=== PATIENT | female | born 1955 | race Caucasian/White ===

== ENCOUNTER 2019-07-29 22:04 | Emergency (ER) | payer BC ==
[2019-07-29 23:21] LABS: Albumin 3.7 g/dL (3.4-5.0); BUN Blood Urea Nitrogen 11 mg/dL (7-18); Basophils % 0.9 % (0-1.3); Bicarbonate 26 mmol/L (21-32); Glucose Level 86 mg/dL (74-106); Hematocrit 38.9 % (36.0-45.0); Lymphocytes % 41.5 % (15.3-44.8); MPV 8.1 fL (7.6-11.3); Magnesium 2.1 mg/dL (1.8-2.4); Potassium 3.3 mmol/L (3.5-5.1); Protime INR 0.96; RBC Red Blood Cell Count 3.88 M/uL (3.86-4.86); Sodium Level 143 mmol/L (136-145)
[2019-07-29 23:23] LABS: ALT/SGPT 26 U/L (12-78); AST/SGOT 19 U/L (15-37); Bilirubin Direct 0.2 mg/dL (0-0.2)
[2019-07-29 23:44] LABS: Alkaline Phosphatase 77 U/L (45-117); Bilirubin Total 0.7 mg/dL (0.2-1.0); Protein, Total 7.6 g/dL (6.4-8.2)
[2019-07-29 23:45] LABS: NT PRO-BNP 32 pg/mL (<125); Troponin (Emerg Dept Use Only) < 0.02 ng/mL (0.0-0.045)
[2019-07-30] MEDS ORDERED: POTASSIUM CL SA 10 MEQ TAB PO ONE (00:02)
[2019-07-30] MEDS ORDERED: ASPIRIN 81 MG CHEWABLE TABLET ONE (00:02)
--- NOTE | 2019-07-30 01:26 | ER ---
Nurse's Notes [facility] Name: Daniela Underwood Age: 64 yrs Sex: Female : 1955 Arrival Date: 07/29/2019 Time: 22:07 Bed 2 Private MD: Diagnosis: Chest pain, unspecified Presentation: 07/28 22:21 Chief complaint: Patient states: Chest pain that began about 2130 while watching TV; lp1 States first episode of chest pain yesterday and another episode this morning; States some dizziness. Coronavirus screen: Proceed with normal triage. Patient denies a cough. Patient denies shortness of breath or difficulty breathing. Patient denies measured and/or subjective temperature greater than 100.4F prior to today's visit. Patient denies travel on a cruise ship or to a country the [facility] currently lists as an affected area. Ebola Screen: No symptoms or risks identified at this time. Initial Sepsis Screen: Does the patient meet any 2 criteria? No. Patient's initial sepsis screen is negative. Does the patient have a suspected source of infection? No. Patient's initial sepsis screen is negative. Risk Assessment: Do you want to hurt yourself or someone else? Patient reports no desire to harm self or others. Onset of symptoms was July 29, 2019 at 21:30. 22:21 Method Of Arrival: Wheelchair lp1 22:21 Acuity: STEPHANIE 3 lp1 Historical: - Allergies: 22:24 Floxin; lp1 - Home Meds: 22:24 levothyroxine oral [Active]; lp1 - PMHx: 22:24 Hypothyroidism; lp1 - PSHx: 22:24 Partial thyroidectomy; lp1 - Immunization history:: Adult Immunizations up to date. - Social history:: Smoking status: Patient denies any tobacco usage or history of. Screenin:49 Abuse screen: Denies threats or abuse. Denies injuries from another. Nutritional rr5 screening: No deficits noted. Tuberculosis screening: No symptoms or risk factors identified. Fall Risk IV access (20 points). Total Alvarez Fall Scale indicates No Risk (0-24 pts). Assessment: 22:30 General: Appears in no apparent distress. uncomfortable, Behavior is calm, cooperative, rr5 appropriate for age. 22:30 Pain: Complains of pain in chest Pain does not radiate. Pain currently is 4 out of 10 rr5 on a pain scale. Quality of pain is described as aching, Pain began suddenly, 1 hour ago. Is intermittent. Neuro: Level of Consciousness is awake, alert, obeys commands, Oriented to person, place, time, situation, Appropriate for age Reports dizziness. Cardiovascular: Reports chest pain, Capillary refill < 3 seconds Patient's skin is warm and dry. Respiratory: Airway is patent Respiratory effort is even, unlabored, Respiratory pattern is regular, symmetrical. GI: No signs and/or symptoms were reported involving the gastrointestinal system. : No signs and/or symptoms were reported regarding the genitourinary system. EENT: No signs and/or symptoms were reported regarding the EENT system. Derm: Skin is intact, is healthy with good turgor, Skin temperature is warm. Musculoskeletal: Circulation, motion, and sensation intact. Capillary refill < 3 seconds. 23:37 Reassessment: Patient and/or family updated on plan of care and expected duration. Pain rv level reassessed. Patient is alert, oriented x 3, equal unlabored respirations, skin warm/dry/pink. Patient denies pain at this time. Patient states feeling better. Patient states symptoms have improved. Cardiovascular: Rhythm is regular Chest pain is denied. 07/29 00:17 Reassessment: Patient appears in no apparent distress at this time. Patient and/or rr5 family updated on plan of care and expected duration. Pain level reassessed. Patient is alert, oriented x 3, equal unlabored respirations, skin warm/dry/pink. stat medication given, for repeat troponin. 01:30 Reassessment: Patient and/or family updated on plan of care and expected duration. Pain rv level reassessed. Patient is alert, oriented x 3, equal unlabored respirations, skin warm/dry/pink. Patient denies pain at this time. Patient states feeling better. Patient states symptoms have improved. Vital Signs: 07/28 22:21 BP 107 / 52; Pulse 60; Resp 16; Temp 98.3; Pulse Ox 99% on R/A; Weight 52.16 kg (R); lp1 Height 5 ft. 1 in. (154.94 cm); Pain 4/10; 23:00 BP 103 / 59; Pulse 59; Resp 14; Pulse Ox 100% on R/A; rv 23:30 BP 90 / 47; Pulse 59; Resp 13; Pulse Ox 100% on R/A; Pain 0/10; rv 07/29 00:50 BP 96 / 54; Pulse 62; Resp 16; Pulse Ox 99% ; rr5 01:29 BP 104 / 54; Pulse 61; Resp 13; Temp 98; Pulse Ox 100% on R/A; rv 07/28 22:21 Body Mass Index 21.73 (52.16 kg, 154.94 cm) lp1 ED Course: 07/28 22:07 Patient arrived in ED. cl3 22:23 Triage completed. lp1 22:23 Arm band placed on. lp1 22:26 Fernando Conroy PA is PHCP. jr8 22:26 Dewayne Lowe MD is Attending Physician. jr8 22:36 Sang Avendano RN is Primary Nurse. rr5 22:45 Inserted saline lock: 20 gauge in right forearm, using aseptic technique. Blood rr5 collected. 22:45 Patient maintains SpO2 saturation greater than 95% on room air. rr5 22:49 Patient has correct armband on for positive identification. Placed in gown. Bed in low rr5 position. Call light in reach. quality assurance monitor chassis on. Pulse ox on. NIBP on. 23:45 XRAY Chest (1 view) In Process Unspecified. EDNM 07/29 00:40 Repeat lab(s) drawn. by me, sent to lab. rr5 01:24 Jas Ramachandran MD is Referral Physician. jr8 01:29 No provider procedures requiring assistance completed. IV discontinued, intact, rv bleeding controlled, No redness/swelling at site. Pressure dressing applied. Administered Medications: 00:00 Drug: Potassium Chloride 20 mEq Route: PO; rr5 01:29 Follow up: Response: No adverse reaction rv 00:01 Drug: Aspirin Chewable Tablet 324 mg Route: PO; rr5 01:29 Follow up: Response: No adverse reaction rv Outcome: 01:25 Discharge ordered by . jr8 01:30 Discharged to home ambulatory. rv 01:30 Condition: improved 01:30 Discharge instructions given to patient, Instructed on discharge instructions, follow up and referral plans. Demonstrated understanding of instructions, follow-up care. 01:31 Patient left the ED. rr5 Signatures: Dispatcher [employer] EDNM Odalys May RN RN lp1 Fernando Conroy PA PA jr8 Omid Monae, RN RN rv Sang Avendano RN RN rr5 Joey Quesada cl3
--- NOTE | 2019-07-30 01:28 | EDPHYS ---
Physician Documentation [facility] Name: Daniela Underwood Age: 64 yrs Sex: Female : 1955 Arrival Date: 07/29/2019 Time: 22:07 Bed 2 Private MD: WILIAN Physician Dewayne Lowe HPI: 07/28 22:45 This 64 yrs old Female presents to ER via Wheelchair with complaints of Chest jr8 Pain, Chest Tightness. 22:45 The patient or guardian reports chest pain that is located primarily in the substernal jr8 area. Onset: acutely, today. The pain does not radiate. Associated signs and symptoms: The patient has no apparent associated signs or symptoms. The chest pain is described as a pressure. Duration: The patient or guardian reports a single episode, that is still ongoing, but improving. Modifying factors: The symptoms are alleviated by nothing. the symptoms are aggravated by nothing. Severity of pain: At its worst the pain was moderate in the emergency department the pain has improved. The patient has experienced a previous episode, yesterday, and the symptoms today are exactly the same. The patient has not recently seen a physician. Historical: - Allergies: 22:24 Floxin; lp1 - Home Meds: 22:24 levothyroxine oral [Active]; lp1 - PMHx: 22:24 Hypothyroidism; lp1 - PSHx: 22:24 Partial thyroidectomy; lp1 - Immunization history:: Adult Immunizations up to date. - Social history:: Smoking status: Patient denies any tobacco usage or history of. ROS: 22:45 Eyes: Negative for injury, pain, redness, and discharge, ENT: Negative for injury, jr8 pain, and discharge, Neck: Negative for injury, pain, and swelling, Respiratory: Negative for shortness of breath, cough, wheezing, and pleuritic chest pain, Abdomen/GI: Negative for abdominal pain, nausea, vomiting, diarrhea, and constipation, Back: Negative for injury and pain, MS/Extremity: Negative for injury and deformity, Skin: Negative for injury, rash, and discoloration, Neuro: Negative for headache, weakness, numbness, tingling, and seizure. 22:45 Cardiovascular: Positive for chest pain, Negative for edema, orthopnea, palpitations, paroxysmal nocturnal dyspnea. Exam: 22:45 Eyes: Pupils equal round and reactive to light, extra-ocular motions intact. Lids and jr8 lashes normal. Conjunctiva and sclera are non-icteric and not injected. Cornea within normal limits. Periorbital areas with no swelling, redness, or edema. ENT: Nares patent. No nasal discharge, no septal abnormalities noted. Tympanic membranes are normal and external auditory canals are clear. Oropharynx with no redness, swelling, or masses, exudates, or evidence of obstruction, uvula midline. Mucous membranes moist. Neck: Trachea midline, no thyromegaly or masses palpated, and no cervical lymphadenopathy. Supple, full range of motion without nuchal rigidity, or vertebral point tenderness. No Meningismus. Cardiovascular: Regular rate and rhythm with a normal S1 and S2. No gallops, murmurs, or rubs. Normal PMI, no JVD. No pulse deficits. Respiratory: Lungs have equal breath sounds bilaterally, clear to auscultation and percussion. No rales, rhonchi or wheezes noted. No increased work of breathing, no retractions or nasal flaring. Abdomen/GI: Soft, non-tender, with normal bowel sounds. No distension or tympany. No guarding or rebound. No evidence of tenderness throughout. Back: No spinal tenderness. No costovertebral tenderness. Full range of motion. Skin: Warm, dry with normal turgor. Normal color with no rashes, no lesions, and no evidence of cellulitis. MS/ Extremity: Pulses equal, no cyanosis. Neurovascular intact. Full, normal range of motion. Neuro: Awake and alert, GCS 15, oriented to person, place, time, and situation. Cranial nerves II-XII grossly intact. Motor strength 5/5 in all extremities. Sensory grossly intact. Cerebellar exam normal. Normal gait. 22:45 ECG was reviewed by the Attending Physician. Vital Signs: 22:21 BP 107 / 52; Pulse 60; Resp 16; Temp 98.3; Pulse Ox 99% on R/A; Weight 52.16 kg (R); lp1 Height 5 ft. 1 in. (154.94 cm); Pain 4/10; 23:00 BP 103 / 59; Pulse 59; Resp 14; Pulse Ox 100% on R/A; rv 23:30 BP 90 / 47; Pulse 59; Resp 13; Pulse Ox 100% on R/A; Pain 0/10; rv 05/23 00:50 BP 96 / 54; Pulse 62; Resp 16; Pulse Ox 99% ; rr5 01:29 BP 104 / 54; Pulse 61; Resp 13; Temp 98; Pulse Ox 100% on R/A; rv 07/28 22:21 Body Mass Index 21.73 (52.16 kg, 154.94 cm) lp1 MDM: 07/28 22:27 Patient medically screened. 07/29 01:23 The patient was given aspirin in the Emergency Department. Data reviewed: vital signs, [facility] nurses notes, lab test result(s), EKG, radiologic studies, plain films. Data interpreted: Pulse oximetry: on room air is 99 %. Interpretation: normal. Counseling: I had a detailed discussion with the patient and/or guardian regarding: the historical points, exam findings, and any diagnostic results supporting the discharge/admit diagnosis, lab results, radiology results, the need for outpatient follow up, a senior net engineer, a family practitioner, to return to the emergency department if symptoms worsen or persist or if there are any questions or concerns that arise at home. ED course: Patient remains stable and chest pain free. X2 troponins negative. Rest of blood, ECG, and imaging negative. Will d/c home to f/u with cardiology after weekend. Knows to come back if it happens again. 07/28 22:27 Order name: Basic Metabolic Panel; Complete Time: 23:48 [facility] 07/28 22:27 Order name: CBC with Diff; Complete Time: 23:48 [facility] 07/28 22:27 Order name: LFT's; Complete Time: 23:48 [facility] 07/28 22:27 Order name: Magnesium; Complete Time: 23:48 07/28 22:27 Order name: NT PRO-BNP; Complete Time: 23:48 [facility] 07/28 22:27 Order name: PT-INR; Complete Time: 23:48 07/28 22:27 Order name: Troponin (emerg Dept Use Only); Complete Time: 23:48 07/28 22:27 Order name: XRAY Chest (1 view) [facility] 07/28 22:27 Order name: EKG; Complete Time: 22:27 [facility] 07/28 22:27 Order name: Cardiac monitoring; Complete Time: 22:49 07/28 22:27 Order name: EKG - Nurse/Tech; Complete Time: 07/29 00:38 Order name: Troponin (emerg Dept Use Only); Complete Time: 07/28 22:27 Order name: IV Saline Lock; Complete Time: 07/28 22:27 Order name: Labs collected and sent; Complete Time: 07/28 22:27 Order name: O2 Per Protocol; Complete Time: 07/28:27 Order name: O2 Sat Monitoring; Complete Time: EC/22 22:45 Rate is 62 beats/min. Rhythm is regular, Normal Sinus Rhythm. QRS Mellen is Normal. AR jr8 interval is normal at 176 msec. QRS interval is normal at 78 msec. QT interval is normal at 432 msec. No Q waves. T waves are Inverted in lead V1. No ST changes noted. Clinical impression: NSR w/ Non-specific ST/T Changes and No evidence of ischemia. Interpreted by me. Reviewed by me. Administered Medications: 07/29 00:00 Drug: Potassium Chloride 20 mEq Route: PO; rr5 01:29 Follow up: Response: No adverse reaction rv 00:01 Drug: Aspirin Chewable Tablet 324 mg Route: PO; rr5 01:29 Follow up: Response: No adverse reaction rv Disposition: 07:20 Co-signature as Attending Physician, Dewayne Lowe MD I agree with the assessment and sameer plan of care. Disposition: 07/30/19 01:25 Discharged to Home. Impression: Chest pain, unspecified. - Condition is Stable. - Discharge Instructions: Nonspecific Chest Pain. - Medication Reconciliation Form, Thank You Letter, Antibiotic Education, Prescription Opioid Use form. - Follow up: Jas Ramachandran MD; When: 2 - 3 days; Reason: Recheck today's complaints, Continuance of care, Re-evaluation by your physician. - Problem is new. - Symptoms have improved. Signatures: Dispatcher [employer] Dewayne Guzman MD MD cha Pena, Laura RN RN lp1 Fernando Conroy PA PA jr8 Sang Avendano RN RN rr5 Omid Monae RN rv Corrections: (The following items were deleted from the chart) 01:31 01:25 07/30/2019 01:25 Discharged to Home. Impression: Chest pain, unspecified. rr5 Condition is Stable. Forms are Medication Reconciliation Form, Thank You Letter, Antibiotic Education, Prescription Opioid Use. Follow up: Jas Ramachandran; When: 2 - 3 days; Reason: Recheck today's complaints, Continuance of care, Re-evaluation by your physician. Problem is new. Symptoms have improved. jr8
[2019-07-30 01:59] VITALS: BP 104/54; TEMP 98; O2SAT 100
--- NOTE | 2019-07-30 08:05 | EKG ---
Test Date: 2019-07-29 Test Time: 22:42:42 Soap [place]pper: RV MEASUREMENT RESULTS: Intervals: Rate: 62 WA: 176 QRSD: 78 QT: 426 QTc: 432 [place]: P: 61 WA: 176 QRS: 78 T: 53 INTERPRETIVE STATEMENTS: Normal sinus rhythm Normal ECG Compared to ECG 04/03/2015 17:59:37 Atrial abnormality no longer present Electronically Signed On 07-30-19 08:03:54 CDT by Jas Ramachandran
--- NOTE | 2019-07-30 12:43 | RAD REPORT ---
EXAM DESCRIPTION: RAD - Chest Single View - 07/29/2019 11:44 pm CLINICAL HISTORY: CHEST PAIN Chest pain. COMPARISON: Chest Pa And Lat (2 Views) dated 03/21/2016; CHEST SINGLE VIEW dated 04/03/2015 FINDINGS: Portable technique limits examination quality. The lungs are grossly clear. The heart is normal in size. No displaced fractures. IMPRESSION: No acute intrathoracic process suspected.
== END 2019-07-30 01:31 | disposition home or self-care (01) ==
LOC: ER 22:04
DX: R07.9 Chest pain, unspecified (principal); E03.9 Hypothyroidism, unspecified; Z88.8 Allergy status to other drugs, medicaments and biological substances
CPT/HCPCS: 36415; 71045; 80048; 80076; 83735; 83880; 84484; 85025; 85610; 93005; 99285

== ENCOUNTER 2023-08-08 09:43 | Emergency (ER) | payer BC, OTHER ==
[2023-08-08] MEDS ORDERED: NA CHLORIDE 0.9% 1,000 ML ONE (10:02)
--- NOTE | 2023-08-08 10:22 | RAD REPORT ---
EXAM DESCRIPTION: RAD - Chest Single View - 08/08/2023 10:14 am CLINICAL HISTORY: COUGH COMPARISON: Chest Single View dated 07/29/2019; Chest Pa And Lat (2 Views) dated 03/21/2016; CHEST SIN GLE VIEW dated 04/03/2015 FINDINGS: Lines: None. Lungs: No evidence of edema or pneumonia. Pleural: No significant pleural effusions or pneumothorax. Cardiac: The heart size is within normal limits. Mediastinum: Within normal limits. Bones: No acute fractures. Other: None IMPRESSION: No acute cardiopulmonary disease.
[2023-08-08 10:25] LABS: Absolute Basophils 0.1 K/uL (0-0.5); Absolute Monocytes 0.8 K/uL (0.1-1.3); Absolute Neutrophil 7.7 K/uL (1.8-8.0); Basophils % 0.6 % (0-1.3); Eosinophils % 0.3 % (0-4.4); Hematocrit 32.2 % (36.0-45.0); Hemoglobin 10.2 g/dL (12.0-15.0); Lymphocytes % 10.3 % (15.3-44.8); MCH 28.4 pg (27.0-35.0); MCHC 31.8 g/dL (32.0-36.0); MCV 89.4 fL (80-100); MPV 6.8 fL (7.6-11.3); Monocytes % 8.1 % (3.3-12.3); Neutrophils % 80.7 % (41.7-73.7); Platelets 406 thou/uL (152-406); Red Cell Distribution Width 16.1 % (12.1-15.2)
[2023-08-08 10:27] LABS: Specific Gravity 1.012 (1.005-1.030); Urine Bilirubin NEGATIVE (Negative); Urine Blood Negative (Negative); Urine Clarity Clear (Clear); Urine Color Light-Yellow (Yellow); Urine Glucose NEGATIVE (Negative); Urine Ketones NEGATIVE (Negative); Urine Microscopic Reflex YN NO UMIC; Urine Nitrite NEGATIVE (Negative); Urine Protein NEGATIVE (Negative); Urine Urobilinogen Normal (Normal)
[2023-08-08 10:28] LABS: PT Prothrombin Time 11.3 SECONDS (9.5-12.5); Protime INR 1.03
--- NOTE | 2023-08-08 10:39 | RAD REPORT ---
EXAM DESCRIPTION: CT - [id number] - 08/08/2023 10:28 am CLINICAL HISTORY: Trauma, head and neck injury. TRAUMA COMPARISON: No comparisons TECHNIQUE: Axial 5 mm thick images of the head were obtained. Axial 2 mm thick images of the cervical spine were obtained with sagittal and coronal reconstruction images generated and reviewed. All CT scans are performed using dose optimization technique as appropriate and may include automated exposure control or mA/KV adjustment according to patient size. FINDINGS: CT HEAD WITHOUT CONTRAST: No acute hemorrhage, hydrocephalus or extra-axial collection is identified.No areas of brain edema or midline shift. The paranasal sinuses and mastoids are clear.The calvarium is intact. CT CERVICAL SPINE WITHOUT CONTRAST: No fracture or subluxation.No prevertebral soft tissues swelling is identified. Reversal of the maryjane l cervical lordosis. Approximately 2 millimeters anterolisthesis of C4 on C5 and trace retrolisthesis of C5 on C6. Neural foraminal narrowing is present at C5-6. There is either congenital or developmen angel fusion of the posterior elements at C2-3 and C3-4. IMPRESSION: No acute intracranial or cervical spine findings.
[2023-08-08 10:45] LABS: Albumin 3.5 g/dL (3.4-5.0); Albumin/Globulin Ratio 0.9 (1.1-1.8); Anion Gap 6.9 mEq/L (5.0-15.0); Bilirubin Direct 0.2 mg/dL (0-0.2); Bilirubin Indirect, Calculated 0.5 mg/dL (0.2-0.8); Bilirubin Total 0.7 mg/dL (0.2-1.0); Globulin 4.1 g/dL (2.3-3.5); Magnesium 2.2 mg/dL (1.6-2.4); Potassium 3.9 mEq/L (3.5-5.1); Protein, Total 7.6 g/dL (6.4-8.2); Troponin High Sensitivity 4.7 pg/mL (<58.9)
--- NOTE | 2023-08-08 12:54 | EDPHYS ---
Physician Documentation [facility] Name: Daniela Underwood Age: 68 yrs Sex: Female : 1955 Arrival Date: 08/08/2023 Time: 09:43 Bed 17 Private MD: ED Physician Dewayne Lowe HPI: 08/07 12:43 This 68 yrs old Female presents to ER via Ambulatory with complaints of sent sameer by next level:passed out,feels unstable, Head Injury-Adult, Headache. 12:43 The patient or guardian reports injury, a laceration, 2.5 cm(s), clean, pain, swelling. sameer The complaints affect the right side of the back of head. Context of injury: The problem was sustained at home, resulted from a fall. Onset: The symptoms/episode began/occurred just prior to arrival. Associated signs and symptoms: Loss of consciousness: This patient did not experience any loss of consciousness. Pertinent positives: injury, generalized weakness. Severity of symptoms: At their worst the symptoms were mild, in the emergency department the symptoms are unchanged. The patient has not experienced similar symptoms in the past. Historical: - Allergies: 09:58 Ofloxacin; ll1 - PMHx: 09:58 Hypothyroidism; ll1 - Immunization history:: Adult Immunizations up to date. - Infectious Disease History:: Denies. - Family history:: not pertinent. - Social history:: Smoking status: Patient denies any tobacco usage or history of. ROS: 12:43 Constitutional: Negative for fever, chills, and weight loss, Eyes: Negative for injury, sameer pain, redness, and discharge, ENT: Negative for injury, pain, and discharge, Neck: Negative for injury, pain, and swelling, Cardiovascular: Negative for chest pain, palpitations, and edema, Respiratory: Negative for shortness of breath, cough, wheezing, and pleuritic chest pain, Abdomen/GI: Negative for abdominal pain, nausea, vomiting, diarrhea, and constipation, Back: Negative for injury and pain, : Negative for injury, bleeding, discharge, and swelling, MS/Extremity: Negative for injury and deformity, Psych: Negative for depression, anxiety, suicide ideation, homicidal ideation, and hallucinations, Allergy/Immunology: Negative for hives, rash, and allergies, Endocrine: Negative for neck swelling, polydipsia, polyuria, polyphagia, and marked weight changes, Hematologic/Lymphatic: Negative for swollen nodes, abnormal bleeding, and unusual bruising, 12:43 Skin: Positive for laceration(s), of the right side of the back of head, 12:43 Neuro: Positive for near syncope, weakness, Exam: 12:43 Constitutional: This is a well developed, well nourished patient who is awake, alert, sameer and in no acute distress. Head/Face: Normocephalic, atraumatic. Eyes: Pupils equal round and reactive to light, extra-ocular motions intact. Lids and lashes normal. Conjunctiva and sclera are non-icteric and not injected. Cornea within normal limits. Periorbital areas with no swelling, redness, or edema. ENT: Nares patent. No nasal discharge, no septal abnormalities noted. Tympanic membranes are normal and external auditory canals are clear. Oropharynx with no redness, swelling, or masses, exudates, or evidence of obstruction, uvula midline. Mucous membranes moist. Neck: Trachea midline, no thyromegaly or masses palpated, and no cervical lymphadenopathy. Supple, full range of motion without nuchal rigidity, or vertebral point tenderness. No Meningismus. Chest/axilla: Normal chest wall appearance and motion. Nontender with no deformity. No lesions are appreciated. Cardiovascular: Regular rate and rhythm with a normal S1 and S2. No gallops, murmurs, or rubs. Normal PMI, no JVD. No pulse deficits. Respiratory: Lungs have equal breath sounds bilaterally, clear to auscultation and percussion. No rales, rhonchi or wheezes noted. No increased work of breathing, no retractions or nasal flaring. Abdomen/GI: Soft, non-tender, with normal bowel sounds. No distension or tympany. No guarding or rebound. No evidence of tenderness throughout. Back: No spinal tenderness. No costovertebral tenderness. Full range of motion. Skin: Warm, dry with normal turgor. Normal color with no rashes, no lesions, and no evidence of cellulitis. MS/ Extremity: Pulses equal, no cyanosis. Neurovascular intact. Full, normal range of motion. Neuro: Awake and alert, GCS 15, oriented to person, place, time, and situation. Cranial nerves II-XII grossly intact. Motor strength 5/5 in all extremities. Sensory grossly intact. Cerebellar exam normal. Normal gait. Psych: Awake, alert, with orientation to person, place and time. Behavior, mood, and affect are within normal limits. 12:43 Head/face: Noted is a laceration(s), that is superficial, 2.5 cm(s), swelling, that is mild, of the right side of the back of head, 12:56 ECG was reviewed by the Attending Physician. [facility] Vital Signs: 10:05 BP 116 / 59; Pulse 65; Resp 16; Temp 98.1; Pulse Ox 100% ; Weight 51.26 kg; Height 5 ll1 ft. 1 in. ; Pain 8/10; 11:26 BP 118 / 75; Pulse 58; Resp 18; Pulse Ox 100% on R/A; mb9 12:00 BP 124 / 64; Pulse 59; Resp 14; Pulse Ox 100% on R/A; me1 12:26 BP 110 / 54 Supine; Pulse 63; Resp 14; Pulse Ox 100% on R/A; me1 12:28 BP 116 / 64 Sitting; Pulse 58; Resp 18; Pulse Ox 100% on R/A; me1 12:29 BP 106 / 66 Standing; Pulse 58; Resp 14; Pulse Ox 100% on R/A; me1 10:05 Body Mass Index 21.35 (51.26 kg, 154.94 cm) ll1 10:05 Pain Scale: Adult ll1 [place] Coma Score: 12:43 Eye Response: spontaneous(4). Motor Response: obeys commands(6). Verbal Response: sameer oriented(5). Total: 15. 12:46 Eye Response: spontaneous(4). Motor Response: obeys commands(6). Verbal Response: sameer oriented(5). Total: 15. 12:56 Eye Response: spontaneous(4). Motor Response: obeys commands(6). Verbal Response: sameer oriented(5). Total: 15. Laceration: 12:50 Wound Repair of 2.5cm ( 1.0in ) subcutaneous laceration to right side of the back of [facility] head. Irregularly shaped.. Distal neuro/vascular/tendon intact. Anesthesia: none with 0 mls of none. Wound prep: Simple cleansing with betadine by pa. Skin closed with 2 2 jose [place] using staple gun. Dressed with non-adherent dressing. Patient tolerated well. MDM: 09:59 Patient medically screened. sameer 12:46 Differential diagnosis: Contusion of Hematoma on Laceration of Intracranial bleed- sameer Concussion without LOC. cerebral contusion. Data reviewed: vital signs, nurses notes, lab test result(s), EKG, radiologic studies, CT scan, plain films. Consideration of Admission/Observation Escalation of care including admission/observation considered. I considered the following discharge prescriptions or medication management in the emergency department Medications were administered in the Emergency Department. See MAR. Independent interpretation of the following test(s) in the Emergency Department EKG: See my EKG interpretation above. Test considered but Not performed: Ultrasound no 2 d echo. Historians other than the Patient: Spouse/Significant Other: well informed. Care significantly affected by the following chronic conditions: anemia, hypothyroid. Counseling: I had a detailed discussion with the patient and/or guardian regarding the historical points, exam findings, and any diagnostic results supporting the discharge/admit diagnosis, lab results, radiology results, the need for outpatient follow up, for definitive care, an masonry installer. 08/07 10:01 Order name: Basic Metabolic Panel; Complete Time: 11:08/07 10:01 Order name: CBC with Diff; Complete Time: 11:08/07 10:01 Order name: LFT's; Complete Time: 11:08/07 10:01 Order name: Magnesium; Complete Time: 11:08/07 10:01 Order name: NT PRO-BNP; Complete Time: 11:08/07 10:01 Order name: PT-INR; Complete Time: 11:08/07 10:01 Order name: Troponin HS; Complete Time: 11:08/07 10:01 Order name: Lipase; Complete Time: 11:06 08/07 10:01 Order name: Urinalysis w/ reflexes; Complete Time: 11:08/07 10:01 Order name: XRAY Chest (1 view); Complete Time: 11:08/07 10:01 Order name: CT Head C Spine; Complete Time: 11:08/07 10:01 Order name: EKG; Complete Time: 10:02 08/07 10:01 Order name: Cardiac monitoring; Complete Time: 10:08/07 10:01 Order name: EKG - Nurse/Tech; Complete Time: 10: [facility] 08/07 10:01 Order name: IV Saline Lock; Complete Time: 10: [facility] 08/07 10: Order name: Labs collected and sent; Complete Time: : [facility] 08/07 10:01 Order name: O2 Per Protocol; Complete Time: 10: [facility] 08/07 10:01 Order name: O2 Sat Monitoring; Complete Time: 10: [facility] 08/07 12:38 Order name: Orthostatics; Complete Time: 12:[address] [facility] EC:56 Rate is 61 beats/min. Rhythm is regular. QRS [place] is Normal. [place] interval is normal. QRS sameer interval is normal. QT interval is normal. No Q waves. T waves are Normal. No ST changes noted. Clinical impression: Normal ECG and No evidence of ischemia. Interpreted by me. Reviewed by me. Administered Medications: : Drug: NS 0.9% IV 1000 ml IV at 1 bolus Per protocol; 1000 mL bolus Route: IV; Rate: 1 mb9 bolus; Site: right antecubital; 12:15 Follow up: Response: No adverse reaction; Marked relief of symptoms; IV Status: me1 Completed infusion; IV Intake: 1000ml Disposition Summary: 08/08/23 12:54 Discharge Ordered Notes: Location: Home sameer Problem: new sameer Symptoms: have improved sameer Condition: Stable sameer Diagnosis - Anemia, unspecified sameer - Syncope Near sameer - Unspecified injury of head, initial encounter - right posterior scalp laceration sameer - Laceration without foreign body of other part of head - scalp sameer Followup: sameer - With: Private Physician - When: 2 - 3 days - Reason: Recheck today's complaints, Continuance of care, Re-evaluation by your physician Followup: sameer - With: John Rubalcava MD - When: 2 - 3 days - Reason: Recheck today's complaints, Re-evaluation by your physician Discharge Instructions: - Discharge Summary Sheet sameer - Iron Deficiency Anemia, Adult sameer - Anemia sameer - Iron-Rich Diet sameer - Head Injury, Adult sameer - Near-Syncope sameer - Near-Syncope, [id number] sameer - Syncope, Vjyl-cg-[id number] sameer - Head Injury, Adult, Nbek-pq-Lsvw sameer - Iron Deficiency Anemia, Adult, Yqoz-eb-Hlzi sameer Forms: - Medication Reconciliation Form sameer - Antibiotic Education sameer - Prescription Opioid Use sameer - Patient Portal Instructions sameer - Leadership Thank You Letter sameer Prescriptions: - Ferrous Sulfate 325 mg (65 mg Iron) Oral tablet - take 1 tablet ORAL route once daily; 30 tablet; Refills: 0, Product Selection sameer Permitted Signatures: Dispatcher [employer] EDDewayne Norton MD MD cha Lewis, Lynsay, RN RN ll1 Daniela Sidhu RN RN mb9 Olinda Gaona RN me1 Corrections: (The following items were deleted from the chart) 10:02 10:01 BASIC METABOLIC PANEL+C.LAB.BRZ ordered. EDMS EDMS 10:02 10:01 CBC+H.LAB.BRZ ordered. EDMS EDMS 10:02 10:01 HEPATIC FUNCTION+C.LAB.BRZ ordered. EDMS EDMS 10:02 10:01 MAGNESIUM+C.LAB.BRZ ordered. EDMS EDMS 10:02 10:01 PROBNP+C.LAB.BRZ ordered. EDMS EDMS 10:02 10:01 PROTIME (+INR)+COAG.LAB.BRZ ordered. EDMS EDMS 10:02 10:01 Troponin High Sensitivity+C.LAB.BRZ ordered. EDMS EDMS 10:02 10:01 LIPASE+C.LAB.BRZ ordered. EDMS EDMS 10:02 10:01 Urinalysis+U.LAB.BRZ ordered. EDMS EDMS
--- NOTE | 2023-08-08 12:54 | ER ---
Nurse's Notes [facility] Name: Daniela Underwood Age: 68 yrs Sex: Female : 1955 Arrival Date: 08/08/2023 Time: 09:43 Bed 17 Private MD: Diagnosis: Anemia, unspecified;Syncope Near;Unspecified injury of head, initial encounter-right posterior scalp laceration;Laceration without foreign body of other part of head-scalp Presentation: 08/07 10:05 Chief complaint: Patient states: Syncopal event after eating breakfast this morning. + ll1 sweaty and nausea. Hematoma and pain to head since passing out. Eating/drinking normally, no recent medication changes. Coronavirus screen: Client denies travel out of the [place] in the last 14 days. At this time, the client does not indicate any symptoms associated with coronavirus-19. Ebola Screen: Patient denies travel to an Ebola-affected area in the 21 days before illness onset. Initial Sepsis Screen: Does the patient meet any 2 criteria? No. Patient's initial sepsis screen is negative. Does the patient have a suspected source of infection? No. Patient's initial sepsis screen is negative. Risk Assessment: Do you want to hurt yourself or someone else? Patient reports no desire to harm self or others. Onset of symptoms was August 08, 2023. 10:05 Method Of Arrival: Ambulatory ll1 10:05 Acuity: STEPHANIE 2 ll1 Triage Assessment: 10:06 General: Appears uncomfortable, Behavior is calm, cooperative, appropriate for age. ll1 Pain: Complains of pain in scalp Pain currently is 8 out of 10 on a pain scale. Quality of pain is described as aching, throbbing. Neuro: Reports dizziness, a syncopal episode weakness. Cardiovascular: Reports diaphoresis, nausea. GI: Reports nausea. Historical: - Allergies: 09:58 Ofloxacin; ll1 - PMHx: 09:58 Hypothyroidism; ll1 - Immunization history:: Adult Immunizations up to date. - Infectious Disease History:: Denies. - Family history:: not pertinent. - Social history:: Smoking status: Patient denies any tobacco usage or history of. Screenin:01 [facility] ED Fall Risk Assessment (Adult) History of falling in the last 3 months, mb9 including since admission Yes- single mechanical fall (1 pt) Confusion or Disorientation No (0 pts) Intoxicated or Sedated No (0 pts) Impaired Gait No (0 pts) Mobility Assist Device Used No (0 pt) Altered Elimination No (0 pt) Score/Fall Risk Level 3 or more points = High Risk Oriented to surroundings, Maintained a safe environment, Educated pt \T\ family on fall prevention, incl call for assistance when getting out of bed, Assessed \T\ reinforced patient's understanding of fall precautions. Abuse screen: Denies threats or abuse. Nutritional screening: No deficits noted. Tuberculosis screening: No symptoms or risk factors identified. Assessment: 10:22 General: Appears in no apparent distress. Behavior is calm, cooperative. Pain: mb9 Complains of pain in scalp Pain does not radiate. Pain currently is 6 out of 10 on a pain scale. Quality of pain is described as throbbing, Pain began suddenly, Is continuous. Neuro: Cole Agitation-Sedation Scale (RASS): 0 - Alert and Calm Level of Consciousness is awake, alert, obeys commands, Oriented to person, place, time, situation, Appropriate for age Yard Operator are equal bilaterally Moves all extremities. Gait is steady, Speech is normal, Facial symmetry appears normal, Pupils are PERRLA, Intact Reports headache. Neuro: Reports headache in left parietal area. Cardiovascular: Heart tones S1 S2 present Patient's skin is warm and dry. Rhythm is regular. Respiratory: Airway is patent Respiratory effort is even, unlabored, Respiratory pattern is regular, symmetrical, Breath sounds are clear bilaterally. GI: No signs and/or symptoms were reported involving the gastrointestinal system. : No signs and/or symptoms were reported regarding the genitourinary system. EENT: No signs and/or symptoms were reported regarding the EENT system. Derm: Skin is pink, warm \T\ dry. Musculoskeletal: Range of motion: intact in all extremities. Vital Signs: 10:05 BP 116 / 59; Pulse 65; Resp 16; Temp 98.1; Pulse Ox 100% ; Weight 51.26 kg; Height 5 ll1 ft. 1 in. ; Pain 8/10; 11:26 BP 118 / 75; Pulse 58; Resp 18; Pulse Ox 100% on R/A; mb9 12:00 BP 124 / 64; Pulse 59; Resp 14; Pulse Ox 100% on R/A; me1 12:26 BP 110 / 54 Supine; Pulse 63; Resp 14; Pulse Ox 100% on R/A; me1 12:28 BP 116 / 64 Sitting; Pulse 58; Resp 18; Pulse Ox 100% on R/A; me1 12:29 BP 106 / 66 Standing; Pulse 58; Resp 14; Pulse Ox 100% on R/A; me1 10:05 Body Mass Index 21.35 (51.26 kg, 154.94 cm) ll1 10:05 Pain Scale: Adult ll1 [place] Coma Score: 12:43 Eye Response: spontaneous(4). Motor Response: obeys commands(6). Verbal Response: sameer oriented(5). Total: 15. 12:46 Eye Response: spontaneous(4). Motor Response: obeys commands(6). Verbal Response: sameer oriented(5). Total: 15. 12:56 Eye Response: spontaneous(4). Motor Response: obeys commands(6). Verbal Response: sameer oriented(5). Total: 15. ED Course: 09:48 Patient arrived in ED. ra3 09:58 Arm band placed on Patient placed in an exam room, on a stretcher. ll1 09:59 Dewayne Lowe MD is Attending Physician. sameer 10:01 Daniela Sidhu RN is Primary Nurse. mb9 10:01 Placed in gown. Bed in low position. Call light in reach. Side rails up X 1. Provided [place] Education on: press call light if needing anything. Client placed on continuous cardiac and pulse oximetry monitoring. NIBP monitoring applied. patient ombudsperson on. Door closed. Noise minimized. Warm blanket given. Pillow given. 10:06 Triage completed. ll1 10:10 Initial lab(s) drawn, by me, sent to lab. EKG done, by ED staff, reviewed by Dewayne Lowe MD. Inserted saline lock: 20 gauge in right antecubital area, using aseptic technique. 10:16 XRAY Chest (1 view) In Process Unspecified. EDMS 10:22 Urinalysis w/ reflexes Sent. mb9 10:22 Lipase Sent. mb9 10:22 Basic Metabolic Panel Sent. mb9 10:22 CBC with Diff Sent. mb9 10:22 LFT's Sent. mb9 10:22 Magnesium Sent. mb9 10:22 NT PRO-BNP Sent. mb9 10:22 PT-INR Sent. mb9 10:22 Troponin HS Sent. mb9 10:23 No provider procedures requiring assistance completed. mb9 10:30 CT Head C Spine In Process Unspecified. EDMS 12:00 Report given to OLAMIDE Prakash. mb9 12:26 Olinda Gaona, RN is Primary Nurse. me1 12:52 John Rubalcava MD is Referral Physician. sameer 13:18 IV discontinued, intact, bleeding controlled, No redness/swelling at site. Pressure me1 dressing applied. Administered Medications: 10:22 Drug: NS 0.9% IV 1000 ml IV at 1 bolus Per protocol; 1000 mL bolus Route: IV; Rate: 1 mb9 bolus; Site: right antecubital; 12:15 Follow up: Response: No adverse reaction; Marked relief of symptoms; IV Status: me1 Completed infusion; IV Intake: 1000ml Medication: 10:24 VIS not applicable for this client. mb9 Intake: 12:15 IV: 1000ml; Total: 1000ml. me1 Outcome: 12:54 Discharge ordered by . sameer 13:18 Discharged to home ambulatory, with significant other, me1 13:18 Condition: stable 13:18 Discharge instructions given to patient, significant other, Instructed on discharge instructions, follow up and referral plans. medication usage, Demonstrated understanding of instructions, follow-up care, medications, Prescriptions given X 1, 13:18 Patient left the ED. me1 Signatures: Dispatcher [employer] EDOR Dewayne Lowe MD MD cha Lewis, Lynsay, RN RN 1 Daniela Sidhu RN RN Olinda Trivedi, OLAMIDE RN al1 Anna Garner ra3
[2023-08-08 13:32] VITALS: TEMP 98.1; O2SAT 100
[2023-08-08 13:50] VITALS: BP 106/66
--- NOTE | 2023-08-10 14:11 | EKG ---
Test Date: 2023-08-08 Test Time: 10:09:48 Creative Recruiter: MB MEASUREMENT RESULTS: Intervals: Rate: 61 MD: 172 QRSD: 72 QT: 418 QTc: 420 [place]: P: 83 MD: 172 QRS: 91 T: 58 INTERPRETIVE STATEMENTS: Normal sinus rhythm Normal ECG Compared to ECG 07/29/2019 22:42:42 No significant changes Electronically Signed On 08-10-23 14:06:19 CDT by Pako Lim
== END 2023-08-08 13:18 | disposition home or self-care (01) ==
LOC: ER 09:43
PROC: 0HQ0XZZ Repair Scalp Skin, External Approach (ICD-10-PCS; principal; 2023-08-08)
DX: D64.9 Anemia, unspecified (principal); S01.01XA Laceration without foreign body of scalp, initial encounter
CPT/HCPCS: 96361; 12001; 93005; 85025; 80048; 36415; 83735; 85610; 80076; 81003; 84484; 83690; 83880; 70450; 72125; 71045; 96360; 99285; J7030